=== PATIENT | female | born 1980 | race Caucasian/White ===

== ENCOUNTER 2016-04-02 20:41 | Emergency (ER) | payer OTHER, BC ==
[2016-04-02 20:51] VITALS: BP 125/86; PULSE 84; TEMP 98.3; BMI 23.8
[2016-04-02] MEDS ORDERED: HYDROCODONE 5 MG/ACETAMIN 325 MG TAB PO ONE (22:56)
[2016-04-02] MEDS ORDERED: CYCLOBENZAPRINE 10 MG TAB PO ONE (22:56)
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
== END 2016-04-03 00:11 | disposition home or self-care (01) ==
LOC: ED 20:41
DX: S29.012A Strain of muscle and tendon of back wall of thorax, initial encounter (principal); S16.1XXA Strain of muscle, fascia and tendon at neck level, initial encounter; V49.40XA Driver injured in collision with unspecified motor vehicles in traffic accident, initial encounter; I10 Essential (primary) hypertension; Z79.899 Other long term (current) drug therapy
CPT/HCPCS: 72050; 72070; 72110; 99283; J3490